=== PATIENT | female | born 1955 | race Asian ===

== ENCOUNTER → 2016-11-10 | Outpatient (CLI) | payer BC | END | disposition home or self-care (01) | LOC: MAMMO 06:30 | PROVIDERS: ATTEND Internal Medicine Endocrinology, Diabetes & Metabolism | DX: N63 Unspecified lump in breast (principal) | CPT/HCPCS: 76641; G0206 ==

== ENCOUNTER → 2016-12-16 | Outpatient (CLI) | payer BC ==
[2016-12-16 07:23] LABS: CARBON DIOXIDE 28 mEq/L (21-32); LDL CHOLESTEROL 70 mg/dL (5-100); T4 FREE 1.16 ng/dL (0.76-1.46)
[2016-12-16 07:44] LABS: CHLORIDE 101 mEq/L (98-107); HDL CHOLESTEROL 52 mg/dL (40-59)
[2016-12-16 08:15] LABS: VITAMIN B12 SERUM 1436 pg/mL (211-911)
[2016-12-16 08:36] LABS: FOLIC ACID (FOLATE) SERUM > 20.00 ng/mL (>5.38)
[2016-12-16 10:46] LABS: CLARITY URINE CLEAR (CLEAR); COLOR URINE YELLOW (YELLOW); GLUCOSE URINE NEGATIVE (NEGATIVE); KETONES URINE NEGATIVE (NEGATIVE); LEUKOCYTE ESTERASE URINE NEGATIVE (NEGATIVE); NITRITE URINE NEGATIVE (NEGATIVE); OCCULT BLOOD URINE NEGATIVE (NEGATIVE); PH URINE 5.5 (4.5-8.0); PROTEIN URINE NEGATIVE (NEGATIVE); SPECIFIC GRAVITY URINE 1.007 (1.005-1.030); UROBILINOGEN URINE 0.2 E.U./dL (0.2-1.0)
[2016-12-17 13:11] LABS: *CREATININE RANDOM URINE 17.7 mg/dL (Not Estab.); MICROALBUMIN RANDOM URINE <3.0 ug/mL (Not Estab.); MICROALBUMIN/CREATININE RATIO <16.9 mg/g creat (0.0-30.0)
[2016-12-17 13:11] LABS: VITAMIN D 25-OH 34.6 ng/mL (30.0-100.0)
== END | disposition home or self-care (01) ==
LOC: LAB 05:50
PROVIDERS: ATTEND Internal Medicine Endocrinology, Diabetes & Metabolism
DX: E11.40 Type 2 diabetes mellitus with diabetic neuropathy, unspecified (principal); E78.5 Hyperlipidemia, unspecified; M85.80 Other specified disorders of bone density and structure, unspecified site; R29.2 Abnormal reflex
CPT/HCPCS: 36415; 80053; 80061; 81003; 82043; 82306; 82570; 82607; 82746; 83036; 83921; 84439; 84443; 87086

== ENCOUNTER → 2017-02-02 | Outpatient (CLI) | payer BC | END | disposition home or self-care (01) | LOC: RAD 07:41 | PROVIDERS: ATTEND Internal Medicine | DX: M25.551 Pain in right hip (principal) | CPT/HCPCS: 73502 ==

== ENCOUNTER → 2017-04-06 | Outpatient (CLI) | payer BC ==
[2017-04-06 09:06] LABS: BASOPHILS % 0.9 % (0.0-2.0); EOSINOPHILS % 2.9 % (0.0-5.0); HEMATOCRIT. 38.7 % (36.0-48.0); HEMOGLOBIN. 13.1 g/dL (12.0-16.0); LYMPHOCYTES % 37.2 % (20.0-50.0); MEAN CORPUSCULAR HEMOGLOBIN 32.2 pg (28.0-32.0); MEAN CORPUSCULAR VOLUME 94.8 fL (81.0-99.0); MEAN PLATELET VOLUME 7.9 fl (7.4-10.4); MONOCYTES % 8.4 % (2.0-8.0); NEUTROPHILS % 50.6 % (40.0-76.0); PLATELET 243 x1000/uL (130-400); RED BLOOD CELL COUNT 4.08 mill/uL (4.2-5.4); RED CELL DISTRIBUTION WIDTH 12.7 % (11.6-14.6)
[2017-04-06 09:09] LABS: CHLORIDE 102 mEq/L (98-107)
[2017-04-06 09:22] LABS: CARBON DIOXIDE 29 mEq/L (21-32); HDL CHOLESTEROL 65 mg/dL (40-59); LDL CHOLESTEROL 90 mg/dL (5-100); T4 FREE 1.22 ng/dL (0.76-1.46)
== END | disposition home or self-care (01) ==
LOC: LAB 08:29
PROVIDERS: ATTEND Internal Medicine Endocrinology, Diabetes & Metabolism
DX: E11.9 Type 2 diabetes mellitus without complications (principal); E03.9 Hypothyroidism, unspecified; E55.9 Vitamin D deficiency, unspecified; E78.00 Pure hypercholesterolemia, unspecified
CPT/HCPCS: 36415; 80053; 80061; 82306; 83036; 84439; 84443; 85025; 86376

== ENCOUNTER → 2017-04-17 | Outpatient (CLI) | payer BC | END | disposition home or self-care (01) | LOC: MRI 08:37 | PROVIDERS: ATTEND Internal Medicine Endocrinology, Diabetes & Metabolism | DX: M16.0 Bilateral primary osteoarthritis of hip (principal) | CPT/HCPCS: 72195 ==

== ENCOUNTER → 2020-05-11 | Outpatient (CLI) | payer BC | END | disposition home or self-care (01) | LOC: CT 09:41 | PROVIDERS: ATTEND Internal Medicine Endocrinology, Diabetes & Metabolism | DX: G31.1 Senile degeneration of brain, not elsewhere classified (principal); I67.82 Cerebral ischemia; Y93.89 Activity, other specified; Y92.89 Other specified places as the place of occurrence of the external cause; Y99.8 Other external cause status ==

== ENCOUNTER → 2020-08-06 | Outpatient (CLI) | payer BC ==
[2020-08-06 09:23] LABS: BASOPHILS % 1.5 % (0.0-2.0); EOSINOPHILS % 3.7 % (0.0-5.0); HEMATOCRIT. 39.6 % (36.0-48.0); HEMOGLOBIN. 13.4 g/dL (12.0-16.0); LYMPHOCYTES % 30.8 % (20.0-50.0); MEAN CORPUSCULAR HEMOGLOBIN 31.9 pg (28.0-32.0); MEAN CORPUSCULAR VOLUME 94.1 fL (81.0-99.0); MEAN PLATELET VOLUME 7.7 fl (7.4-10.4); MONOCYTES % 6.9 % (2.0-8.0); NEUTROPHILS % 57.1 % (40.0-76.0); PLATELET 245 x1000/uL (130-400); RED CELL DISTRIBUTION WIDTH 12.7 % (11.6-14.6)
[2020-08-06 09:30] LABS: CHLORIDE 101 mEq/L (98-107)
[2020-08-06 09:39] LABS: LDL CHOLESTEROL 112 mg/dL (5-100)
[2020-08-06 09:40] LABS: HDL CHOLESTEROL 57 mg/dL (40-59); T4 FREE 1.26 ng/dL (0.76-1.46)
== END | disposition home or self-care (01) ==
LOC: LAB 08:49
PROVIDERS: ATTEND Internal Medicine Endocrinology, Diabetes & Metabolism
DX: E11.9 Type 2 diabetes mellitus without complications (principal); R94.5 Abnormal results of liver function studies
CPT/HCPCS: 36415; 80053; 80061; 82306; 83036; 84439; 84443; 85025

== ENCOUNTER → 2020-10-25 | Outpatient (CLI) | payer BC | END | disposition home or self-care (01) | LOC: MRI 08:45 | PROVIDERS: ATTEND Psychiatry & Neurology Neurology | DX: I67.82 Cerebral ischemia (principal); R51.9 Headache, unspecified; J32.3 Chronic sphenoidal sinusitis; J34.89 Other specified disorders of nose and nasal sinuses | CPT/HCPCS: 70544; 70553 ==

== ENCOUNTER → 2020-11-09 | Outpatient (CLI) | payer BC ==
[2020-11-09 09:40] LABS: CHLORIDE 104 mEq/L (98-107)
[2020-11-09 09:46] LABS: EOSINOPHILS % 3.5 % (0.0-5.0); HEMATOCRIT. 39.1 % (36.0-48.0); HEMOGLOBIN. 13.5 g/dL (12.0-16.0); LYMPHOCYTES % 39.2 % (20.0-50.0); MEAN CORPUSCULAR HEMOGLOBIN 33.3 pg (28.0-32.0); MEAN CORPUSCULAR VOLUME 96.2 fL (81.0-99.0); MEAN PLATELET VOLUME 7.7 fl (7.4-10.4); MONOCYTES % 7.7 % (2.0-8.0); NEUTROPHILS % 48.6 % (40.0-76.0); PLATELET 243 x1000/uL (130-400); RED BLOOD CELL COUNT 4.07 mill/uL (4.2-5.4); RED CELL DISTRIBUTION WIDTH 12.7 % (11.6-14.6)
[2020-11-09 09:48] LABS: LDL CHOLESTEROL 81 mg/dL (5-100)
[2020-11-09 09:49] LABS: HDL CHOLESTEROL 76 mg/dL (40-59)
[2020-11-09 09:50] LABS: T4 FREE 1.27 ng/dL (0.76-1.46)
[2020-11-09 10:39] LABS: CLARITY URINE CLEAR (CLEAR); COLOR URINE YELLOW (YELLOW); KETONES URINE NEGATIVE (NEGATIVE); LEUKOCYTE ESTERASE URINE NEGATIVE (NEGATIVE); NITRITE URINE NEGATIVE (NEGATIVE); OCCULT BLOOD URINE NEGATIVE (NEGATIVE); PH URINE 6.5 (4.5-8.0); PROTEIN URINE NEGATIVE (NEGATIVE); SPECIFIC GRAVITY URINE 1.007 (1.005-1.030); UROBILINOGEN URINE 0.2 E.U./dL (0.2-1.0)
[2020-11-10 10:08] LABS: *CREATININE RANDOM URINE 23.9 mg/dL (Not Estab.); MICROALBUMIN RANDOM URINE <3.0 ug/mL (Not Estab.)
== END | disposition home or self-care (01) ==
LOC: LAB 08:25
PROVIDERS: ATTEND Internal Medicine Endocrinology, Diabetes & Metabolism
DX: E11.9 Type 2 diabetes mellitus without complications (principal); M85.80 Other specified disorders of bone density and structure, unspecified site; E78.5 Hyperlipidemia, unspecified; E55.9 Vitamin D deficiency, unspecified
CPT/HCPCS: 36415; 80053; 80061; 81003; 82043; 82306; 82570; 83036; 84439; 84443; 85025

== ENCOUNTER → 2021-02-18 | Outpatient (CLI) | payer BC ==
[2021-02-18 08:14] LABS: EOSINOPHILS % 5.3 % (0.0-5.0); HEMATOCRIT. 38.8 % (36.0-48.0); HEMOGLOBIN. 13.1 g/dL (12.0-16.0); LYMPHOCYTES % 43.3 % (20.0-50.0); MEAN CORPUSCULAR HEMOGLOBIN 32.2 pg (28.0-32.0); MEAN CORPUSCULAR VOLUME 95.5 fL (81.0-99.0); MEAN PLATELET VOLUME 7.8 fl (7.4-10.4); MONOCYTES % 7.7 % (2.0-8.0); NEUTROPHILS % 42.7 % (40.0-76.0); PLATELET 257 x1000/uL (130-400); RED BLOOD CELL COUNT 4.06 mill/uL (4.2-5.4); RED CELL DISTRIBUTION WIDTH 12.6 % (11.6-14.6)
[2021-02-18 08:16] LABS: CHLORIDE 105 mEq/L (98-107)
[2021-02-18 08:28] LABS: LDL CHOLESTEROL 72 mg/dL (5-100)
[2021-02-18 08:31] LABS: HDL CHOLESTEROL 52 mg/dL (40-59)
== END | disposition home or self-care (01) ==
LOC: LAB 06:56
PROVIDERS: ATTEND Internal Medicine Endocrinology, Diabetes & Metabolism
DX: E11.9 Type 2 diabetes mellitus without complications (principal); E78.5 Hyperlipidemia, unspecified; E55.9 Vitamin D deficiency, unspecified; R94.5 Abnormal results of liver function studies
CPT/HCPCS: 36415; 80053; 80061; 82306; 83036; 84443; 85025

== ENCOUNTER → 2021-05-13 | Outpatient (CLI) | payer BC ==
[2021-05-13 09:37] LABS: BASOPHILS % 0.8 % (0.0-2.0); HEMATOCRIT. 39.3 % (36.0-48.0); HEMOGLOBIN. 13.2 g/dL (12.0-16.0); LYMPHOCYTES % 40.3 % (20.0-50.0); MEAN CORPUSCULAR HEMOGLOBIN 31.8 pg (28.0-32.0); MEAN CORPUSCULAR VOLUME 94.9 fL (81.0-99.0); MEAN PLATELET VOLUME 7.4 fl (7.4-10.4); MONOCYTES % 6.8 % (2.0-8.0); NEUTROPHILS % 49.1 % (40.0-76.0); PLATELET 280 x1000/uL (130-400); RED BLOOD CELL COUNT 4.15 mill/uL (4.2-5.4); RED CELL DISTRIBUTION WIDTH 12.8 % (11.6-14.6)
[2021-05-13 09:42] LABS: CHLORIDE 101 mEq/L (98-107)
[2021-05-13 09:50] LABS: LDL CHOLESTEROL 120 mg/dL (5-100)
[2021-05-13 09:52] LABS: HDL CHOLESTEROL 65 mg/dL (40-59); T4 FREE 1.12 ng/dL (0.76-1.46)
[2021-05-14 13:11] LABS: *CREATININE RANDOM URINE 34.7 mg/dL (Not Estab.); MICROALBUMIN RANDOM URINE <3.0 ug/mL (Not Estab.)
== END | disposition home or self-care (01) ==
LOC: LAB 08:50
PROVIDERS: ATTEND Internal Medicine Endocrinology, Diabetes & Metabolism
DX: E11.9 Type 2 diabetes mellitus without complications (principal); E55.9 Vitamin D deficiency, unspecified; R19.7 Diarrhea, unspecified
CPT/HCPCS: 36415; 80053; 80061; 82043; 82306; 82570; 83036; 84439; 84443; 85025

== ENCOUNTER → 2021-05-16 | Outpatient (CLI) | payer BC | END | disposition home or self-care (01) | LOC: MAMMO 07:52 | PROVIDERS: ATTEND Internal Medicine Endocrinology, Diabetes & Metabolism | DX: Z12.31 Encounter for screening mammogram for malignant neoplasm of breast (principal); M85.89 Other specified disorders of bone density and structure, multiple sites; M81.0 Age-related osteoporosis without current pathological fracture; N95.9 Unspecified menopausal and perimenopausal disorder; N63.10 Unspecified lump in the right breast, unspecified quadrant | CPT/HCPCS: 77063; 77067; 77080 ==

== ENCOUNTER → 2021-05-27 | Outpatient (CLI) | payer BC | END | disposition home or self-care (01) | LOC: US 08:59 | PROVIDERS: ATTEND Internal Medicine Endocrinology, Diabetes & Metabolism | DX: K83.8 Other specified diseases of biliary tract (principal); D25.9 Leiomyoma of uterus, unspecified; R10.9 Unspecified abdominal pain | CPT/HCPCS: 76700; 76856 ==

== ENCOUNTER → 2021-06-04 | Outpatient (CLI) | payer BC ==
[~2021-06-04] MED LIST: IOHEXOL-300 100 ML BOTTLE ONE
== END | disposition home or self-care (01) ==
LOC: CT 08:19
PROVIDERS: ATTEND Internal Medicine Endocrinology, Diabetes & Metabolism
DX: R16.0 Hepatomegaly, not elsewhere classified (principal); N85.8 Other specified noninflammatory disorders of uterus; R10.9 Unspecified abdominal pain
CPT/HCPCS: 74178; Q9967; Z7610